=== PATIENT | female | born 1950 | race Caucasian/White ===

== ENCOUNTER 2018-06-07 16:45 | Emergency (ER) | payer MEDICARE ==
[~2018-06-07] VITALS: Ht 165.1 cm; Wt 90.0 kg
[~2018-06-07 16:45] MED LIST: ASPIRIN81 MG PO; AUGMENTIN875 MG OR; ELIQUIS5 MG PO; METOPROL TAR25 MG PO; NO HOME MEDS; ZANTAC150 M1 PO; ZOFRAN ODT8 MG SL
[2018-06-07] MEDS ORDERED: KEFLEX500 MG PO (17:12)
== END 2018-06-07 17:27 | disposition home or self-care (01) ==
LOC: ED 16:45
PROC: 0HQGXZZ Repair Left Hand Skin, External Approach (ICD-10-PCS; principal; 2018-06-07)
DX: S61.213A Laceration without foreign body of left middle finger without damage to nail, initial encounter (principal); W26.0XXA Contact with knife, initial encounter; Y93.G3 Activity, cooking and baking; Y92.009 Unspecified place in unspecified non-institutional (private) residence as the place of occurrence of the external cause

== ENCOUNTER 2018-06-16 09:10 | Emergency (ER) | payer MEDICARE ==
[~2018-06-16] VITALS: Ht 165.1 cm; Wt 72.7 kg
[~2018-06-16 09:10] MED LIST changes: +KEFLEX500 MG PO
[2018-06-16] MEDS ORDERED: WARFARIN3 MG PO (09:17)
[2018-06-16 09:27] VITALS: BP 142/81
== END 2018-06-16 09:32 | disposition home or self-care (01) ==
LOC: ED 09:10
DX: S61.213D Laceration without foreign body of left middle finger without damage to nail, subsequent encounter (principal); X58.XXXD Exposure to other specified factors, subsequent encounter

== ENCOUNTER 2023-04-08 06:22 | Day surgery (SDC) | payer MEDICARE ==
[~2023-04-08] VITALS: Ht 165.1 cm; Wt 72.6 kg
[~2023-04-08 06:22] MED LIST changes: +CRESTOR10 MG PO; +OMEPRAZOLE DR40 MG PO; +WARFARIN3 MG PO
[2023-04-08 08:54] VITALS: BP 130/71
== END 2023-04-08 08:30 | disposition home or self-care (01) ==
LOC: ENDO 06:22 → PO 06:22 → ORM 08:15 → ENDO 08:30 → ORM 08:45
PROVIDERS: ATTEND Surgery
PROC: 0DJD8ZZ Inspection of Lower Intestinal Tract, Via Natural or Artificial Opening Endoscopic (ICD-10-PCS; principal; 2023-04-08)
PROC: 0DB68ZX Excision of Stomach, Via Natural or Artificial Opening Endoscopic, Diagnostic (ICD-10-PCS; 2023-04-08)
DX: Z12.11 Encounter for screening for malignant neoplasm of colon (principal); K64.8 Other hemorrhoids; K21.9 Gastro-esophageal reflux disease without esophagitis; K44.9 Diaphragmatic hernia without obstruction or gangrene; K29.70 Gastritis, unspecified, without bleeding; Z79.899 Other long term (current) drug therapy
CPT/HCPCS: 43239; G0121